=== PATIENT | female | born 1975 | race Caucasian/White ===

== ENCOUNTER 2020-08-06 08:09 | Outpatient (REF) | payer OTHER, SELFPAY | END 2020-08-06 08:10 | disposition home or self-care (01) | LOC: HO.MRI 08:09 | PROVIDERS: PCP Family Medicine; Visit Provider Psychiatry & Neurology Neurology | DX: Z13.89 Encounter for screening for other disorder (principal) ==

== ENCOUNTER 2020-08-16 08:06 | Outpatient (REF) | payer OTHER, SELFPAY ==
--- NOTE | ~2020-08-16 | MR_ITS ---
MRI ORBITS WITHOUT AND WITH CONTRAST CLINICAL INFORMATION: Optic neuritis. COMPARISON: None available. TECHNIQUE: MRI of the orbits was obtained using routine sequences without and with contrast. Intravenous contrast: Gadavist 10 mL. FINDINGS: There is possible subtle T2 signal change and enhancement within the intraorbital segment of the right optic nerve however assessment is very limited by motion artifact. This finding can be correlated clinically for signs of right-sided optic neuritis. No additional pathologic enhancement or signal along the optic nerves accounting for artifact. Remaining intraorbital soft tissues are unremarkable. No retrobulbar mass lesions. Imaged arterial flow voids are maintained. Mild nonspecific T2 signal changes within the bifrontal white matter. Small developmental venous anomaly versus versus a capillary telangiectasia within the upper posterior left subinsular white matter is noted. MR/MR orbits face neck wo/w con IMPRESSION: - There is possible subtle T2 signal change and enhancement within the intraorbital segment of the right optic nerve however assessment is very limited by motion artifact. This finding can be correlated clinically for signs of right-sided optic neuritis. - Mild nonspecific T2 signal changes within the bifrontal white matter. - Small developmental venous anomaly versus versus a capillary telangiectasia within the upper posterior left subinsular white matter is noted.
== END 2020-08-16 08:07 | disposition home or self-care (01) ==
LOC: HO.MRI 08:06
PROVIDERS: Visit Provider Psychiatry & Neurology Neurology
DX: H46.9 Unspecified optic neuritis (principal); G35 Multiple sclerosis
CPT/HCPCS: 70543; A9585

== ENCOUNTER 2023-07-02 03:17 | Emergency (ER) | payer OTHER, SELFPAY ==
--- NOTE | 2023-07-02 | ECG_ITS ---
Test Reason : CHEST PAIN Blood Pressure : / mmHG Vent. Rate : 084 BPM Atrial Rate : 084 BPM P-R Int : 154 ms QRS Dur : 080 ms QT Int : 370 ms P-R-T Axes : 026 037 022 degrees QTc Int : 437 ms Normal sinus rhythm with sinus arrhythmia Normal ECG No previous ECGs available Referred By: Generic ED Physician Electronically Signed By:TUNDE AVILA
--- NOTE | ~2023-07-02 | XR_ITS ---
EXAMINATION: XR CHEST CLINICAL INFORMATION: Cough. COMPARISON: None available. TECHNIQUE: Frontal view of the chest was obtained. FINDINGS: No significant abnormality is noted involving the heart, lungs, mediastinum, bony thorax or soft tissues. XR/XR chest 1V IMPRESSION: Unremarkable examination.
[2023-07-02 03:28] VITALS: BP 160/100; PULSE 83; RESP 22; TEMP 36.7; O2SAT 100; BMI 36.3
[2023-07-02 03:40] LABS: Basophils Percent Auto 0.4 % (0-2); Eosinophils Absolute Auto 0.3 X10*3/uL (0.0-0.4); Eosinophils Percent Auto 3.1 % (0-4); Hematocrit 41.6 % (37.0-47.0); Hemoglobin 14.5 g/dl (12.0-16.0); Imm Gran Abs Auto 0.02 X10*3/uL (0.00-0.03); Imm Gran Pct Auto 0.2 % (0.0-0.4); Lymphocytes Percent Auto 24.1 % (20-40); MANUAL DIFF FLAG NO; Mean Corpuscular HGB Conc 34.9 g/dl (31.0-35.0); Mean Corpuscular Hemoglobin 31.8 pg (27.0-33.0); Mean Corpuscular Volume 91.2 fL (80.0-98.0); Mean Platelet Volume 9.2 fL (9.4-12.3); Monocytes Absolute Auto 0.5 X10*3/uL (0.1-1.2); Neutrophils Absolute Auto 5.4 x10*3/uL (2.0-8.3); Neutrophils Percent Auto 66.2 % (45-73); Platelet Count 313 X10*3/uL (160-400); Red Blood Count 4.56 X10*6/uL (4.20-5.50); Red Cell Distribution Width 12.1 % (11.0-16.0); White Blood Count 8.1 X10*3/uL (4.8-10.8)
[2023-07-02 03:41] VITALS: BP 154/91
--- NOTE | 2023-07-02 03:41 | PC.NURSE ---
pt change into hospital attire, placed on bed side monitor, ekg completed, labs collected and sent.
[2023-07-02 03:55] LABS: Alanine Aminotransferase 31 U/L (0-31); Albumin Level 4.3 g/dL (3.5-5.0); Alkaline Phosphatase 55 U/L (39-117); Anion Gap 16 (12-20); Aspartate Amino Transferase 21 U/L (5-31); Bilirubin Total 0.3 mg/dL (0.0-1.0); Blood Urea Nitrogen 11 mg/dL (9-16); Calcium 9.5 mg/dL (8.4-10.2); Carbon Dioxide 23 mmol/L (22-29); Chloride 104 mmol/L (96-108); Creatinine Clr Calc Pharmacy 104.6; Estimated Glomerular Filt Rate > 60; Glucose Random 110 mg/dL (60-115); Potassium 3.6 mmol/L (3.3-5.1); Sodium 139 mmol/L (135-145); Total Protein 7.3 g/dL (6.5-8.0)
[2023-07-02 04:03] LABS: Troponin-I High Sensitivity < 2.7 ng/L (<3.5-17.0)
[2023-07-02 04:49] VITALS: BP 134/85; PULSE 69; RESP 16; O2SAT 98
--- NOTE | 2023-07-02 04:58 | ED_ITS ---
HPI - Chest Pain General Chief Complaint: Chest Pain Stated Complaint: chest pain Time Seen by Provider: 07/02/23 04:14 History of Present Illness HPI narrative: Patient is 47 years old presents today with having chest pain shortness of breath that happened at approximately 02:00. Patient has no history of diabetes. No history of hypertension no history of high cholesterol no history of smoking no history of [place] woke her up. No history of DVT in the past no history of being on control. No travel history. The pain is dull it is constant. It is associated with some mild shortness of breath. There is no diaphoresis. Patient never had an tenderness stress test. There is no new coughing or congestion or upper respiratory symptoms. Related Data Allergies Allergy/AdvReac Type Severity Reaction Status Date / Time No Known Allergies Allergy Verified 07/02/23 04:51 Review of Systems 2 Review of Systems: Positive chest pain Yes all other systems are reviewed and are negative PMFSH Past Medical History Attestation statement: The following information was validated with the patient. Social History Social History Smoked in Last 30 Days: No Use of substances other than those prescribed or required for medical reasons: No Advance Directives: No Advance Directives Information Provided: No Physical Exam 2 Vital Signs: Vital Signs: Last Vital Signs Temp 98.0 F 07/02/23 03:28 Pulse 69 07/02/23 04:49 Resp 16 07/02/23 04:49 BP 134/85 07/02/23 04:49 Pulse Ox 98 07/02/23 04:49 O2 Del Method Room Air 07/02/23 04:49 BMI result Body Mass Index 36.3 Appearance: Alert. Oriented X3. No acute distress. Eyes: Pupils equal, round and reactive to light. ENT: Pharynx normal. Neck: Normal inspection. Neck supple. No lymph nodes noted. No crepitus CVS: Normal heart rate and rhythm. Pulses normal. Normal S1 and S2 Respiratory: No respiratory distress. Breath sounds normal. No Wheezing. No rales Abdomen: Soft and nontender. No rigidity. No distention. good BS x4 Skin: Skin warm and dry. Normal skin color. Normal skin turgor. Extremities: No lower extremity edema. Neurovascular intact to all extremities. No Lacerations. No Rash Neuro: Oriented X 3. No motor deficit. No sensory deficit. Moving all extermities. No slurred speech Medications Administered Discontinued Medications Generic Name Dose Route Start Last Admin Trade Name Allie PRN Reason Stop Dose Admin Aspirin 325 mg 07/02/23 04:51 07/02/23 04:59 Aspirin Enteric Coated 325 Mg Tablet.Dr RIBERA 07/02/23 04:52 325 mg ONCE ONE Administration Medical Decision Making Medical Decision Making [facility] Narrative: Positive chest pain that is over the left side. It is constant. History not consistent with ACS. Patient 1st set of enzymes is negative. Will get a 2nd set. Patient's only risk being father had an AZ in his 50s. My interpretation of her EKG showed a sinus rhythm heart rate is 80 UT QRS QTC within normal limits is no acute ST segment elevation. Patient in no acute distress. Chest x-ray was done to rule out the possibility of pneumonia pneumothorax. Aspirin was given. Two sets of cardiac enzymes are negative. Patient in no acute distress. Chest x-ray was read as negative no evidence for pneumonia no pneumothorax. Patient has no risk for dissection. No history of hypertension no history of smoking. No family history of dissection. Currently in stable condition pain is gone will discharge home close follow-up cardiology on an outpatient basis Differential Diagnosis Differential Diagnoses: The differential diagnosis associated with the presentation includes ACS, pneumonia, panic attack, PE Admission/Observation Consideration of admission/observation: Escalation of care including admission/observation considered Lab Data [facility] Lab Attestation statement: I reviewed the patient's lab results. 07/02/23 03:36 07/02/23 03:36 Labs: Lab Results 07/02/23 07/02/23 Range/Units 03:36 04:56 WBC 8.1 (4.8-10.8) X10*3/uL RBC 4.56 (4.20-5.50) X10*6/uL Hgb 14.5 (12.0-16.0) g/dl Hct 41.6 (37.0-47.0) % MCV 91.2 (80.0-98.0) fL MCH 31.8 (27.0-33.0) pg MCHC 34.9 (31.0-35.0) g/dl RDW 12.1 (11.0-16.0) % Plt Count 313 (160-400) X10*3/uL MPV 9.2 L (9.4-12.3) fL Immature Gran % (Auto) 0.2 (0.0-0.4) % Neut % (Auto) 66.2 (45-73) % Lymph % (Auto) 24.1 (20-40) % [place] % (Auto) 6.0 (2-11) % Eos % (Auto) 3.1 (0-4) % Baso % (Auto) 0.4 (0-2) % Lymph # (Auto) 2.0 (1.2-4.9) X10*3/uL [place] # (Auto) 0.5 (0.1-1.2) X10*3/uL Eos # (Auto) 0.3 (0.0-0.4) X10*3/uL Baso # (Auto) 0.0 (0.0-0.2) X10*3/uL Abs Immat Gran (auto) 0.02 (0.00-0.03) X10*3/uL Absolute Neuts (auto) 5.4 (2.0-8.3) x10*3/uL Absolute Nucleated RBC 0.000 (0.0-0.012) X10*3/uL Nucleated RBC % (auto) 0.0 (0.0-0.2) /100WBC Sodium 139 (135-145) mmol/L Potassium 3.6 (3.3-5.1) mmol/L Chloride 104 (96-108) mmol/L Carbon Dioxide 23 (22-29) mmol/L Anion Gap 16 (12-20) BUN 11 (9-16) mg/dL Creatinine 0.72 (0.5-1.4) mg/dL Estim Creat Clear Calc 104.6 Estimated GFR > 60 Random Glucose 110 (60-115) mg/dL Calcium 9.5 (8.4-10.2) mg/dL Total Bilirubin 0.3 (0.0-1.0) mg/dL AST 21 (5-31) U/L ALT 31 (0-31) U/L Alkaline Phosphatase 55 (39-117) U/L Troponin I High Sens < 2.7 < 2.7 (<3.5-17.0) ng/L Total Protein 7.3 (6.5-8.0) g/dL Albumin 4.3 (3.5-5.0) g/dL Independent Interpretation I performed an independent interpretation of an: EKG (Sinus heart rate is 70 UT QRS QTC within normal limits is no acute ST segment elevation) and Plain X-Ray (Chest x-ray is grossly negative for pneumonia no pneumothorax) Radiology Impression Discussion of test interpretation with radiology: I have reviewed the radiologist's reading. Independent Historian Clinical information obtained from an independent historian. History obtained from or confirmed by: Spouse Discharge Plan Discharge Clinical Impression: Chest pain Patient Disposition: Home, Self-Care Instructions: Chest Pain (ED) Referrals: Faheem Orourke MD [Physician] - 07/06/23
[2023-07-02] MEDS: Aspirin Enteric Coated 325 MG TABLET.DR PO (04:59)
--- NOTE | 2023-07-02 05:00 | PC.NURSE ---
pt medicated per mar, provider into discuss plan of care, repeat trop drawn.
[2023-07-02 05:21] LABS: Troponin-I High Sensitivity < 2.7 ng/L (<3.5-17.0)
[2023-07-02 06:17] VITALS: BP 160/65; PULSE 80; RESP 20; TEMP 36.6; O2SAT 98
== END 2023-07-02 06:18 | disposition home or self-care (01) ==
PROVIDERS: Emergency Provider Emergency Medicine Emergency Medical Services
DX: R07.89 Other chest pain (principal); R06.02 Shortness of breath; Z79.899 Other long term (current) drug therapy
CPT/HCPCS: 36415; 71045; 80053; 84484; 85025; 93005; 99283; 99285

== ENCOUNTER → 2023-07-02 03:20 | Outpatient (BNV) | payer OTHER, SELFPAY | PROVIDERS: Emergency Provider Emergency Medicine Emergency Medical Services; Visit Provider Internal Medicine | DX: R07.9 Chest pain, unspecified (principal) | CPT/HCPCS: 93010 ==